=== PATIENT | female | born 1995 | race Caucasian/White ===

== ENCOUNTER 2017-10-28 20:37 | Emergency (ER) | payer OTHER ==
[~2017-10-28] VITALS: Ht 149.9 cm; Wt 50.3 kg
[2017-10-28 20:40] VITALS: Ht 149.9 cm; Wt 50.3 kg
[2017-10-28 21:52] VITALS: BP 127/78
== END 2017-10-28 21:52 | disposition home or self-care (01) ==
LOC: ED 20:37
DX: S91.332A Puncture wound without foreign body, left foot, initial encounter (principal); W50.0XXA Accidental hit or strike by another person, initial encounter; Y93.89 Activity, other specified; Y92.89 Other specified places as the place of occurrence of the external cause; Y99.8 Other external cause status
CPT/HCPCS: 90715